=== PATIENT | female | born 1965 | race Caucasian/White ===

== ENCOUNTER 2016-05-17 13:51 | Inpatient (IN) | payer MEDICARE, OTHER ==
[~2016-05-17] VITALS: Ht 154.9 cm; Wt 96.2 kg
[2016-05-17 14:51] LABS: HEMOGLOBIN 10.5 gm/dl (12.3-15.3); RED BLOOD COUNT 3.63 M/UL (4.00-5.10); WHITE BLOOD COUNT 6.4 K/UL (4.5-11.0)
[2016-05-18] MEDS ORDERED: BUMEX 1MG TABLET1 MG PO (01:39)
[2016-05-18] MEDS ORDERED: ALDACTONE25 MG PO (01:40)
[2016-05-18] MEDS ORDERED: ZAROXOLYN/DIUL2.5 MG PO (01:42)
[2016-05-18] MEDS ORDERED: ARMOUR THYROID15 MG PO (01:45)
[2016-05-18] MEDS ORDERED: KLOR-CON M2020 MEQ PO (01:46)
[2016-05-18] MEDS ORDERED: LYRICA150 MG PO (01:46)
[2016-05-18] MEDS ORDERED: COREG 3.125M3.125 MG PO (01:46)
[2016-05-18] MEDS ORDERED: CYMBALTA60 MG PO (01:47)
[2016-05-18] MEDS ORDERED: REQUIP1 MG PO (01:47)
[2016-05-18] MEDS ORDERED: CARTRIDGE STAM1 EACH PF (01:49)
[2016-05-18] MEDS ORDERED: IMDUR ER TAB 3030 MG PO (01:50)
[2016-05-18] MEDS ORDERED: REGLAN10 MG PO (01:50)
[2016-05-18] MEDS ORDERED: ULORIC80 MG PO (01:51)
[2016-05-18] MEDS ORDERED: ZYRTEC10 M3 PO (01:51)
[2016-05-18] MEDS ORDERED: SINGULAIR10 MG PO (01:52)
[2016-05-18] MEDS ORDERED: ZANAFLEX4 MG PO (01:53)
[2016-05-18] MEDS ORDERED: TRICOR145 MG PO (01:53)
[2016-05-18] MEDS ORDERED: PRILOSEC OTC20 MG PO (01:53)
[2016-05-18] MEDS ORDERED: MIRALAX17 GM PO (01:54)
[2016-05-18] MEDS ORDERED: PRAVASTATIN SOD40 MG PO (01:54)
[2016-05-18] MEDS ORDERED: VITAMIN C 500500 MG PO (01:55)
[2016-05-18] MEDS ORDERED: IRON325 M1 PO (01:55)
[2016-05-18] MEDS ORDERED: COMBIVENT0.074 GM/I INH (01:56)
[2016-05-20] MEDS ORDERED: ZAROXOLYN/DIULO5 MG GT (15:25)
== END 2016-05-20 17:17 | disposition home or self-care (01) | DRG 291 ==
LOC: ER1 13:51 → ZEROF 21:14 → CCU 21:14 → PROG CARE 05-18 18:16
PROVIDERS: Internal Medicine; Physician Assistant Medical; ADMIT Family Medicine
PROC: 5A09357 Assistance with Respiratory Ventilation, Less than 24 Consecutive Hours, Continuous Positive Airway Pressure (ICD-10-PCS; principal; 2016-05-18)
DX: I50.33 Acute on chronic diastolic (congestive) heart failure (principal); J96.01 Acute respiratory failure with hypoxia; E66.2 Morbid (severe) obesity with alveolar hypoventilation; Z68.41 Body mass index [BMI] 40.0-44.9, adult; I27.2 Other secondary pulmonary hypertension; I25.10 Atherosclerotic heart disease of native coronary artery without angina pectoris; E10.65 Type 1 diabetes mellitus with hyperglycemia; N18.3 Chronic kidney disease, stage 3 (moderate); E03.9 Hypothyroidism, unspecified; E87.6 Hypokalemia; E78.5 Hyperlipidemia, unspecified; R07.89 Other chest pain; I44.7 Left bundle-branch block, unspecified; J32.9 Chronic sinusitis, unspecified; H02.401 Unspecified ptosis of right eyelid; H54.41 Blindness, right eye, normal vision left eye; Z96.41 Presence of insulin pump (external) (internal); Z79.82 Long term (current) use of aspirin; Z79.899 Other long term (current) drug therapy; Z88.2 Allergy status to sulfonamides; Z90.49 Acquired absence of other specified parts of digestive tract; Z98.890 Other specified postprocedural states; Z80.1 Family history of malignant neoplasm of trachea, bronchus and lung; Z83.6 Family history of other diseases of the respiratory system; Z82.49 Family history of ischemic heart disease and other diseases of the circulatory system
CPT/HCPCS: ECHO; 36415; 36600; 71020; 78452; 80048; 80053; 81001; 82550; 82553; 82803; 82962; 83874; 83880; 84484; 85025; 87081; 87880; 93005; 93017; 93306; 94640; 94660; 96372; 96374; 99284; A9502; J1644; J1940; J2785

== ENCOUNTER 2021-06-15 19:23 | Inpatient (IN) | payer MEDICARE, OTHER ==
[~2021-06-15] VITALS: Ht 154.9 cm; Wt 68.0 kg
[~2021-06-15 19:23] MED LIST: ALDACTONE25 MG PO; ARMOUR THYROID15 MG PO; BUMEX 1MG TABLET1 MG PO; CARTRIDGE STAM1 EACH PF; COMBIVENT0.074 GM/I INH; COREG 3.125M3.125 MG PO; CYMBALTA60 MG PO; IMDUR ER TAB 3030 MG PO; IRON325 M1 PO; KLOR-CON M2020 MEQ PO; LYRICA150 MG PO; MIRALAX17 GM PO; PRAVASTATIN SOD40 MG PO; PRILOSEC OTC20 MG PO; REGLAN10 MG PO; ROPINIROLE HC0.25 MG PO; SINGULAIR10 MG PO; TRICOR145 MG PO; ULORIC80 MG PO; VITAMIN C 500500 MG PO; ZANAFLEX4 MG PO; ZAROXOLYN/DIUL2.5 MG PO; ZAROXOLYN/DIULO5 MG GT; ZYRTEC10 M3 PO
[2021-06-16 01:06] LABS: HEMOGLOBIN 10.3 gm/dl (12.3-15.3); RED BLOOD COUNT 3.72 M/UL (4.00-5.10); WHITE BLOOD COUNT 12.8 K/UL (4.5-11.0)
[2021-06-16] MEDS ORDERED: ISOSORBIDE MONO60 MG PO (10:00)
[2021-06-16] MEDS ORDERED: POTASSIUM CHLO10 MEQ PO (10:04)
[2021-06-16] MEDS ORDERED: PRAVASTATIN SOD80 MG PO (10:05)
[2021-06-16] MEDS ORDERED: LEVOTHYROXINE88 MCG PO (10:10)
[2021-06-16] MEDS ORDERED: LANTUS SOL100 UNIT/1 SQ (10:12)
[2021-06-16] MEDS ORDERED: KEPPRA 500 MG500 MG PO (10:14)
[2021-06-16] MEDS ORDERED: HYDROCODON-ACE1 EAC4 PO (10:15)
[2021-06-16] MEDS ORDERED: PREDNISONE20 MG PO (10:17)
[2021-06-16] MEDS ORDERED: CARAFATE 1 GM TA1 GM PO (10:18)
[2021-06-16] MEDS ORDERED: FENOFIBRATE54 MG PO (10:19)
[2021-06-16] MEDS ORDERED: MOTEGRITY2 MG PO (10:21)
[2021-06-16] MEDS ORDERED: PROVENTIL HFA6.7 GM INH (11:21)
[2021-06-16] MEDS ORDERED: ZYLOPRIM 100 M100 MG PO (11:22)
[2021-06-16] MEDS ORDERED: BREO ELLIPTA 21 EACH INH (11:22)
[2021-06-16] MEDS ORDERED: FLONASE 0.05% N16 GM (11:24)
[2021-06-16] MEDS ORDERED: INSULIN LI100 UNIT/2 SC (11:25)
[2021-06-16] MEDS ORDERED: KEPPRA750 MG PO (11:28)
[2021-06-17 03:42] LABS: HEMOGLOBIN 10.1 gm/dl (12.3-15.3); RED BLOOD COUNT 3.6 M/UL (4.00-5.10); WHITE BLOOD COUNT 14.7 K/UL (4.5-11.0)
[2021-06-18 08:11] LABS: CREATININE, URINE 66.2 mg/dL (Not Estab.)
[2021-06-18 10:46] LABS: HEMOGLOBIN 8.6 gm/dl (12.3-15.3)
[2021-06-18 10:48] LABS: RED BLOOD COUNT 3.04 M/UL (4.00-5.10); WHITE BLOOD COUNT 10.4 K/UL (4.5-11.0)
[2021-06-19 07:04] LABS: HEMOGLOBIN 8.2 gm/dl (12.3-15.3); RED BLOOD COUNT 2.87 M/UL (4.00-5.10); WHITE BLOOD COUNT 8.2 K/UL (4.5-11.0)
[2021-06-20 09:07] LABS: HEMOGLOBIN 8.6 gm/dl (12.3-15.3); RED BLOOD COUNT 2.97 M/UL (4.00-5.10); WHITE BLOOD COUNT 7.3 K/UL (4.5-11.0)
--- NOTE | 2021-06-20 15:57 | NUR ---
PATIENT SOB THIS AFTERNOON. PROVIDER NOTIFIED AND 3L O2 NASAL CANULA APPLIED. PATIENT HAD FEVER OF 99.9 PROVIDER ALSO NOTIFIED OF FEVER AND ORDERED TYLENOL PRN. WILL CONTINUE TO MONITOR.
[2021-06-21 04:15] LABS: HEMOGLOBIN 8.4 gm/dl (12.3-15.3); RED BLOOD COUNT 3.01 M/UL (4.00-5.10); WHITE BLOOD COUNT 7.2 K/UL (4.5-11.0)
[2021-06-23 06:06] LABS: HEMOGLOBIN 7.2 gm/dl (12.3-15.3)
[2021-06-23 06:12] LABS: RED BLOOD COUNT 2.56 M/UL (4.00-5.10); WHITE BLOOD COUNT 4.2 K/UL (4.5-11.0)
[2021-06-24 04:39] LABS: HEMOGLOBIN 7.6 gm/dl (12.3-15.3); RED BLOOD COUNT 2.72 M/UL (4.00-5.10)
[2021-06-24 04:41] LABS: WHITE BLOOD COUNT 5.3 K/UL (4.5-11.0)
[2021-06-26 06:01] LABS: HEMOGLOBIN 7.3 gm/dl (12.3-15.3); RED BLOOD COUNT 2.61 M/UL (4.00-5.10); WHITE BLOOD COUNT 5.1 K/UL (4.5-11.0)
[2021-06-27 06:10] LABS: RED BLOOD COUNT 2.39 M/UL (4.00-5.10); WHITE BLOOD COUNT 4.2 K/UL (4.5-11.0)
[2021-06-27 06:16] LABS: HEMOGLOBIN 6.6 gm/dl (12.3-15.3)
[2021-06-27 22:01] LABS: HEMOGLOBIN 9.2 gm/dl (12.3-15.3)
[2021-06-28 05:34] LABS: WHITE BLOOD COUNT 5.1 K/UL (4.5-11.0)
[2021-06-28 05:44] LABS: RED BLOOD COUNT 3.29 M/UL (4.00-5.10)
[2021-06-28] MEDS ORDERED: DOCUSATE SODIU100 MG PO (14:16)
[2021-06-28] MEDS ORDERED: KEFLEX CAP 250250 MG PO (14:16)
--- NOTE | 2021-06-28 16:28 | NUR ---
CALLED REPORT TO WILLA AT [facility].
== END 2021-06-28 16:36 | disposition home or self-care (01) | DRG 603 ==
LOC: ER1 19:23 → CDU 06-16 05:00 → MED SURG 4 06-16 05:00 → CDU 06-16 05:00 → MED SURG 4 06-16 08:27
PROVIDERS: Internal Medicine; Internal Medicine Nephrology; Nurse Practitioner Family; Physician Assistant Medical; ADMIT Internal Medicine
DX: L03.116 Cellulitis of left lower limb (principal); I13.0 Hypertensive heart and chronic kidney disease with heart failure and stage 1 through stage 4 chronic kidney disease, or unspecified chronic kidney disease; I50.32 Chronic diastolic (congestive) heart failure; E87.1 Hypo-osmolality and hyponatremia; Z20.822 Contact with and (suspected) exposure to COVID-19; E11.43 Type 2 diabetes mellitus with diabetic autonomic (poly)neuropathy; J45.909 Unspecified asthma, uncomplicated; G47.33 Obstructive sleep apnea (adult) (pediatric); E03.9 Hypothyroidism, unspecified; E78.5 Hyperlipidemia, unspecified; D63.1 Anemia in chronic kidney disease; E86.0 Dehydration; N18.31 Chronic kidney disease, stage 3a; E11.22 Type 2 diabetes mellitus with diabetic chronic kidney disease; E11.319 Type 2 diabetes mellitus with unspecified diabetic retinopathy without macular edema; E87.6 Hypokalemia; M25.462 Effusion, left knee; M81.0 Age-related osteoporosis without current pathological fracture; M10.9 Gout, unspecified; K31.84 Gastroparesis; H54.8 Legal blindness, as defined in USA; G25.81 Restless legs syndrome; E11.42 Type 2 diabetes mellitus with diabetic polyneuropathy; Z79.4 Long term (current) use of insulin; Z90.49 Acquired absence of other specified parts of digestive tract; Z98.890 Other specified postprocedural states; Z88.2 Allergy status to sulfonamides; Z91.040 Latex allergy status; Z82.49 Family history of ischemic heart disease and other diseases of the circulatory system; Z80.0 Family history of malignant neoplasm of digestive organs; Z68.28 Body mass index [BMI] 28.0-28.9, adult; I25.2 Old myocardial infarction
CPT/HCPCS: 36415; 71045; 73562; 80048; 80053; 80202; 81001; 82043; 82272; 82340; 82550; 82553; 82570; 82728; 82962; 83540; 83550; 83605; 83735; 83880; 84100; 84156; 84300; 84484; 85014; 85018; 85025; 85652; 86140; 86850; 86900; 86901; 86920; 87040; 93005; 94640; 94664; 94760; 96365; 96375; 96376; 97110; 97116; 97116-GP-CQ; 97161; 97166; 97530; 97530-GP-CQ; 99284; G0378; J0696; J1650; J1940; J2405; J3370; J7030; J7070; P9016; U0002

== ENCOUNTER 2021-09-18 15:26 | Emergency (ER) | payer MEDICARE, OTHER ==
[~2021-09-18 15:26] MED LIST changes: +BREO ELLIPTA 21 EACH INH; +CARAFATE 1 GM TA1 GM PO; +DOCUSATE SODIU100 MG PO; +FENOFIBRATE54 MG PO; +FLONASE 0.05% N16 GM; +HYDROCODON-ACE1 EAC4 PO; +INSULIN LI100 UNIT/2 SC; +ISOSORBIDE MONO60 MG PO; +KEFLEX CAP 250250 MG PO; +KEPPRA 500 MG500 MG PO; +KEPPRA750 MG PO; +LANTUS SOL100 UNIT/1 SQ; +LEVOTHYROXINE88 MCG PO; +MOTEGRITY2 MG PO; +POTASSIUM CHLO10 MEQ PO; +PRAVASTATIN SOD80 MG PO; +PREDNISONE20 MG PO; +PROVENTIL HFA6.7 GM INH; +ZYLOPRIM 100 M100 MG PO
[2021-09-18] MEDS ORDERED: HYDROCODON-ACE1 EAC4 PO (19:12)
== END 2021-09-18 21:15 | disposition home or self-care (01) ==
LOC: ER1 15:26
DX: S32.592A Other specified fracture of left pubis, initial encounter for closed fracture (principal); S62.012A Displaced fracture of distal pole of navicular [scaphoid] bone of left wrist, initial encounter for closed fracture; R10.30 Lower abdominal pain, unspecified; I25.2 Old myocardial infarction; E10.22 Type 1 diabetes mellitus with diabetic chronic kidney disease; N18.30 Chronic kidney disease, stage 3 unspecified; Z90.49 Acquired absence of other specified parts of digestive tract; W19.XXXA Unspecified fall, initial encounter
CPT/HCPCS: 70450; 72125; 72128; 72192; 73110; 96372; 99284; J2270; J2405